=== PATIENT | male | born 1945 | race Caucasian/White ===

== ENCOUNTER 2017-06-11 13:04 | Inpatient (IN) | payer MEDICARE, MEDICAID ==
[~2017-06-11] VITALS: Ht 167.6 cm; Wt 84.8 kg
[~2017-06-11 13:04] MED LIST: ASPI-1169 PO; ATEN50TA PO; CLON0.1T PO; LOSA50TA21 PO
--- NOTE | 2017-06-11 13:05 | NUR ---
PRESENTS TO ER C/O WEAKNESS /DIZZY X3 HRS [employer] DENIES HEADACHE BLURRED VISION. A/OX 4 AT THIS TIME, BREATHING EVEN AND UNLABORED. NO NEURO DEFICITS NOTED AT THIS TIME. NAD, VITALS STABLE. SAFETY AND COMFORT MEASURES IN PLACE. MD AT BEDSIDE FOR EVAL.
--- NOTE | 2017-06-11 13:15 | NUR ---
NEW IV STARTED ON RAC, 18G. BLOOD DRAWN AND SENT TO LAB.
[2017-06-11 13:24] LABS: BASOPHILS % (AUTO) 0.5 % (0.0-2.0); EOSINOPHILS % (AUTO) 0.9 % (0.0-6.0); HEMATOCRIT 44 % (39-51); HEMOGLOBIN 15.3 g/dL (13.5-17.5); LYMPHOCYTES % (AUTO) 27.8 % (20.0-44.0); MEAN CORPUSCULAR HGB CONC 35 g/dl (31.0-36.0); MEAN CORPUSCULAR VOLUME 82 fL (80-96); MONOCYTES # (AUTO) 0.4 /CMM (0.1-1.30); MONOCYTES % (AUTO) 6.1 % (2.0-12.0); NEUTROPHILS # (AUTO) 4.7 /CMM (1.8-8.9); NEUTROPHILS % (AUTO) 64.7 % (43.0-81.0); PLATELET COUNT (AUTO) 230 /CMM (150-450); RDW COEFFICIENT OF VARIATION 12.4 (11.5-15.0); RED BLOOD CELL COUNT(AUTO) 5.41 MIL/uL (4.5-6.0); WHITE BLOOD COUNT (AUTO) 7.2 K/uL (4.3-11.0)
--- NOTE | 2017-06-11 13:32 | NUR ---
PATIENT TAKENT TO CT VIA STRETCHER.
[2017-06-11 13:34] LABS: CALCIUM, SERUM 9.4 mg/dL (8.5-10.1); CARBON DIOXIDE 29 mmol/L (21-32); CHLORIDE 99 mmol/L (98-107); CREATININE 0.9 mg/dL (0.6-1.3); GLUCOSE 138 mg/dL (74-106); SODIUM SERUM 135 mmol/L (136-145); UREA NITROGEN, BLOOD 17 mg/dL (7-18)
[2017-06-11 13:38] LABS: INR 0.93 (0.85-1.15)
[2017-06-11 13:41] LABS: CHOLESTEROL 180 mg/dL (<200); HDL CHOLESTEROL 44 mg/dL (40-60); LDL 116 mg/dL (0-99); TRIGLYCERIDES 162 mg/dL (30-150)
--- NOTE | 2017-06-11 13:41 | NUR ---
PATIENT RETURNED FROM CT IN STABLE CONDITION.
[2017-06-11 13:42] LABS: TROPONIN I < 0.017 ng/mL (0.00-0.056)
[2017-06-11] MEDS ORDERED: ASPIRIN EC 81 MG TABLET.DR PO ONE (13:52)
--- NOTE | 2017-06-11 13:53 | NUR ---
PATIENT MEDICATED PER MD ORDERS.
[2017-06-11] MEDS ORDERED: METF-440 PO (13:54)
[2017-06-11] MEDS ORDERED: CLON1TAB5 PO (13:54)
[2017-06-11] MEDS ORDERED: ASPIRIN 81 MG TAB.CHEW PO ONE (14:00)
--- NOTE | 2017-06-11 15:14 | NUR ---
REPORT GIVEN TO MARK DANIELSON FOR BEBETO UPON ADMISSION
[2017-06-11 15:45] VITALS: BP 151/77
--- NOTE | 2017-06-11 15:45 | NUR ---
PATIENT TRANSPORTED TO [facility] VIA ACLS PROTOCOL. RNMARK TO PROVIDE BEBETO.
[2017-06-11 16:04] LABS: BILIRUBIN,DIRECT 0.1 mg/dL (0.0-0.2); BILIRUBIN,TOTAL 0.6 mg/dL (0.2-1.0); TOTAL PROTEIN, SERUM 7.8 g/dL (6.4-8.2)
[2017-06-11 16:07] LABS: THYROID STIMULATING HORMONE 1.329 uIU/mL (0.358-3.74)
[2017-06-11] MEDS ORDERED: LOSARTAN POTASSIUM 50 MG TABLET PO SCH (17:00)
[2017-06-11] MEDS ORDERED: BLOOD SUGAR DIAGNOSTIC 1 EACH STRIP IN SCH (18:00)
[2017-06-11] MEDS: BLOOD SUGAR DIAGNOSTIC 1 EACH STRIP IN SCH ×2 (18:10→21:30)
--- NOTE | 2017-06-11 18:26 | NUR ---
received pt from ER via abram, alert, awake and oriented. on RA, breath sounds clear. HL on R ac. Voided. last BM today in am. No c/o pain. no noted generalized weakness, facial symmetry, strength normal. no noted swallowing difficulty. Notified Dr Hoover of blood sugar 206, waiting for call back. son at bedside. bed low and locked. call light within reached. will cont to monitor.
[2017-06-11 20:00] VITALS: BP 174/85
[2017-06-11] MEDS: LOSARTAN POTASSIUM 50 MG TABLET PO SCH (20:13)
[2017-06-11] MEDS ORDERED: ATENOLOL 50 MG TABLET PO SCH (21:00)
[2017-06-11] MEDS ORDERED: ENOXAPARIN SODIUM 40 MG/0.4 ML DISP.SYRIN SQ SCH (21:00)
[2017-06-11] MEDS: clonazePAM 1 MG TABLET PO PRN (21:30)
[2017-06-11 21:40] VITALS: BP 141/76
[2017-06-11] MEDS ORDERED: SIMVASTATIN 40 MG TABLET PO SCH (22:00)
--- NOTE | 2017-06-11 22:30 | NUR ---
RN NOTES patient voiced out concern with his blood sugar values, patient's blood sugar checked for HS, noted to be 118. per patient he is taking Metformin at home and stated that he wants to take it and does not want to miss a dose. Dr. Vazquez was paged and updated on patient's concerns. per Dr. Vazquez, it is recommended to take insulin while inhouse, d/t preservation of kidney functions. patient strongly refuses to take insulin and wants his Metformin. noted, MD aware. will cont to monitor and endorse accordingly.
[2017-06-11] MEDS ORDERED: INSULIN REGULAR, HUMAN 100 UNIT/ML 3 ML VIAL SQ PRN (23:00)
[2017-06-11] MEDS ORDERED: DEXTROSE 50%-WATER 50 ML DISP.SYRIN IV PRN (23:00)
[2017-06-12 04:00] VITALS: BP_SYST 137; BP_SYST 138; BP_DIAS 72; BP_DIAS 80
[2017-06-12] MEDS: BLOOD SUGAR DIAGNOSTIC 1 EACH STRIP IN SCH ×2 (06:49→12:32)
[2017-06-12 07:08] LABS: APPEARANCE,URINE CLEAR (CLEAR); BILIRUBIN,URINE NEGATIVE (NEGATIVE); BLOOD, URINE NEGATIVE Ery/uL (NEGATIVE); COLOR,URINE YELLOW (YELLOW); KETONES,URINE NEGATIVE (NEGATIVE); LEUKOCYTE ESTERASE ,URINE NEGATIVE (NEGATIVE); NITRITE, URINE NEGATIVE (NEGATIVE); PROTEIN,URINE NEGATIVE (NEGATIVE); UGLUCOSE NEGATIVE (NEGATIVE); UROBILINOGEN,URINE 0.2 EU/dL (0.2)
--- NOTE | 2017-06-12 07:25 | NUR ---
RN NOTES PATIENT WITH NO ACUTE DISTRESS AND CHANGE IN CONDITION OBSERVED OVERNIGHT. PATIENT WITH NO OBSERVED WEAKNESS, NUMBING, CHEST PAIN. PATIENT IS AMBULATORY WITH STEADY GAIT, NO WEAKNESS. ALERT AND ORIENTED. NIHSS DONE, NO DEFICITS. BLOOD SUGAR MONITORED, 120, NO INDICATION FOR INSULIN PER SLIDING SCALE. PATIENT'S NEEDS ANTICIPATED AND MET. SAFETY AND COMFORT ENSURED. ENDORSED ACCORDINGLY TO AM NURSE FOR CONTINUITY OF CARE.
--- NOTE | 2017-06-12 07:35 | NUR ---
RN NOTE RECEIVED PATIENT AWAKE, ALERT AND ORIENTED X 4, HE IS ABLE TO MAKE THINGS KNOWN. BREATHING EVEN AND UNLABORED WITH NO DISTRESS NOTED. ON FIRST LEVELER SINUS KVNG HR OF 56. DENIES ANY PAIN AT THIS TIME. RIGHT IV SITE INTACT AND PATENT. PATIENT IS ABLE TO AMBULATE WITH ASSISTANCE WHEN NEEDED. ALL SAFETY MEASURES PROVIDED. WILL CONTINUE TO MONITOR CONTINUITY OF CARE.
[2017-06-12 07:49] LABS: BASOPHILS % (AUTO) 0.3 % (0.0-2.0); EOSINOPHILS % (AUTO) 1.4 % (0.0-6.0); HEMATOCRIT 42 % (39-51); HEMOGLOBIN 14.4 g/dL (13.5-17.5); LYMPHOCYTES # (AUTO) 2.5 /CMM (0.8-4.8); LYMPHOCYTES % (AUTO) 35.1 % (20.0-44.0); MEAN CORPUSCULAR HGB CONC 35 g/dl (31.0-36.0); MEAN CORPUSCULAR VOLUME 82 fL (80-96); MONOCYTES # (AUTO) 0.6 /CMM (0.1-1.30); MONOCYTES % (AUTO) 8.2 % (2.0-12.0); PLATELET COUNT (AUTO) 204 /CMM (150-450); RDW COEFFICIENT OF VARIATION 12.9 (11.5-15.0); RED BLOOD CELL COUNT(AUTO) 5.07 MIL/uL (4.5-6.0); WHITE BLOOD COUNT (AUTO) 7.2 K/uL (4.3-11.0)
[2017-06-12 08:00] VITALS: BP 143/77
[2017-06-12 08:04] LABS: CHOLESTEROL 161 mg/dL (<200); HDL CHOLESTEROL 37 mg/dL (40-60); LDL 107 mg/dL (0-99); TRIGLYCERIDES 155 mg/dL (30-150)
[2017-06-12 08:06] LABS: CARBON DIOXIDE 26 mmol/L (21-32); CHLORIDE 104 mmol/L (98-107); CREATININE 0.9 mg/dL (0.6-1.3); GLUCOSE 123 mg/dL (74-106); POTASSIUM 3.8 mmol/L (3.5-5.1); SODIUM SERUM 139 mmol/L (136-145); UREA NITROGEN, BLOOD 16 mg/dL (7-18)
[2017-06-12] MEDS ORDERED: ASPIRIN 81 MG TAB.CHEW PO SCH (09:00)
[2017-06-12] MEDS: LOSARTAN POTASSIUM 50 MG TABLET PO SCH (09:16)
--- NOTE | 2017-06-12 10:58 | NUR ---
RN NOTE PER MD DR JEFFRIES STATED OK TO REMOVE TELE BOX WHEN PATIENT GOES FOR HIS MRI TODAY.
[2017-06-12] MEDS: clonazePAM 1 MG TABLET PO PRN (11:04)
[2017-06-12 12:00] VITALS: BP_SYST 153; BP_SYST 97; BP_DIAS 64; BP_DIAS 84
[2017-06-12] MEDS ORDERED: SIMV40TA5 PO (14:01)
--- NOTE | 2017-06-12 14:50 | NUR ---
RN NOTE 71 YEAR OLD MALE DISCHARGED TO HOME IN STABLE CONDITION. COMPLIANT WITH MEDICATIONS, COOPERATIVE WITH TREATMENT PLANS. PATIENT DENIES ANY PAIN, INSTRUCTED TO GO TO THE CLOSET ER IF PATIENT DEVELOPS ANY SYMPTOMS. MEDICAL AND TREATMENT PLANS DIFFERED FOR CONTINUAL MONITORING. EDUCATED PATIENT ABOUT AFTER CARE PLAN AND COPIES PROVIDED. RETURNED PERSONAL BELONGINGS TO PATIENT. MEDICATIONS RECONCILED. REMOVED RIGHT AC GAUGE 18, CATHETER INTACT. PATIENT SIGNED DISCHARGED PAPERWORK. PATIENT LEFT THE UNIT AT 1450 VIA PRIVATE CAR WITH SON (JENA)
== END 2017-06-12 14:50 | disposition home or self-care (01) | DRG 69 ==
LOC: ER 13:05 → TELE1 14:32
PROVIDERS: ADMIT Internal Medicine; ATTEND Internal Medicine
DX: G45.9 Transient cerebral ischemic attack, unspecified (principal); E66.8 Other obesity; F41.9 Anxiety disorder, unspecified; I10 Essential (primary) hypertension; Z86.73 Personal history of transient ischemic attack (TIA), and cerebral infarction without residual deficits; E78.5 Hyperlipidemia, unspecified; Z68.29 Body mass index [BMI] 29.0-29.9, adult; R29.810 Facial weakness
CPT/HCPCS: 36415; 70450-TC; 70551-TC; 71045-TC; 80048-TC; 80061-TC; 80076-TC; 80305; 81000-TC; 82962-TC; 83880; 84443-TC; 84484-TC; 85025-TC; 85652-TC; 85730-TC; 87081-TC; 92611-TC; 93307-TC; 93880-TC; 97112-TC; A4606; J1650; J1815; Z7610